=== PATIENT | female | born 1940 | race Two or more races ===

== ENCOUNTER 2025-04-05 11:57 | Inpatient (IN) | payer OTHER, MEDICAID ==
[~2025-04-05] VITALS: Ht 157.5 cm; Wt 63.5 kg
[2025-04-05 07:00] VITALS: BP 135/73
[2025-04-05 12:44] LABS: PLATELET COUNT (AUTO) 253 K/uL (150-450); RED BLOOD CELL COUNT(AUTO) 4.22 MIL/uL (4.0-5.2); RED CELL DISTRIBUTION WIDTH 14.5 % (11.5-15.0); WHITE BLOOD COUNT (AUTO) 8.7 K/uL (4.3-11.0)
[2025-04-05 12:45] LABS: APPEARANCE,URINE TURBID (CLEAR); BLOOD, URINE 1+ Ery/uL (NEGATIVE); LEUKOCYTE ESTERASE ,URINE NEGATIVE (NEGATIVE); NITRITE, URINE NEGATIVE (NEGATIVE); UGLUCOSE NEGATIVE (NEGATIVE)
[2025-04-05 12:53] LABS: AMPHETAMINE, URINE NEGATIVE (NEGATIVE); BENZODIAZEPINE, URINE NEGATIVE (NEGATIVE); COCCAINE, URINE NEGATIVE (NEGATIVE); OPIATE, URINE NEGATIVE (NEGATIVE)
[2025-04-05 13:01] LABS: BARBITURATE, URINE POSITIVE (NEGATIVE); CANNABINOID, URINE POSITIVE (NEGATIVE)
[2025-04-05 13:02] LABS: ADD URINE CULTURE NO; SQUAMOUS EPITHELIAL CELL,UR Moderate /HPF (None Seen)
[2025-04-05 13:14] LABS: ALCOHOL, BLOOD < 3 mg/dL (0-10); ASPARTATE AMINOTRANSFERASE 25 U/L (15-37); CALCIUM, SERUM 10.7 mg/dL (8.5-10.1); CREATININE 1.2 mg/dL (0.6-1.3); SODIUM SERUM 140 mmol/L (136-145); TOTAL PROTEIN, SERUM 7.7 g/dL (6.4-8.2); UREA NITROGEN, BLOOD 23 mg/dL (7-18)
[2025-04-05] MEDS ORDERED: SITA100T PO (15:04)
[2025-04-05] MEDS ORDERED: TEMA15CA PO (15:04)
[2025-04-05] MEDS ORDERED: PRIM50TA27 PO (15:04)
[2025-04-05] MEDS ORDERED: CHOL100043 PO (15:04)
[2025-04-05] MEDS ORDERED: ASPI-1169 PO (15:04)
[2025-04-05] MEDS ORDERED: [UNRECOGNIZED DRUG - OTHER] PO (15:04)
[2025-04-05] MEDS ORDERED: LEVO75TA7 PO (15:04)
[2025-04-05] MEDS ORDERED: POTA-165 PO (15:04)
[2025-04-05] MEDS ORDERED: ESCI20TA PO (15:04)
[2025-04-05] MEDS ORDERED: PROP10TA10 PO (15:04)
[2025-04-05] MEDS ORDERED: BACI1CAP6 PO (15:04)
[2025-04-05] MEDS ORDERED: ATOR10TA PO (15:04)
[2025-04-05] MEDS ORDERED: MAGN250T37 PO (15:04)
[2025-04-05 15:48] VITALS: O2SAT 99
[2025-04-05 16:00] VITALS: BP_SYST 112; BP_SYST 120; BP_DIAS 58; BP_DIAS 75; TEMP 97.5; TEMP 98.1; O2SAT 94; O2SAT 97
[2025-04-05] MEDS ORDERED: MAG HYDROX/AL HYDROX/SIMETH 30 ML UDC PO PRN (17:00)
[2025-04-05] MEDS: PROPRANOLOL HCL 10 MG TABLET PO SCH (17:00)
[2025-04-05] MEDS ORDERED: ACETAMINOPHEN 325 MG TABLET PO PRN (17:00)
[2025-04-05] MEDS ORDERED: DEXTROSE 50%-WATER 50 ML DISP.SYRIN IV PRN (17:00)
[2025-04-05] MEDS ORDERED: MAGNESIUM HYDROXIDE 30 ML UDC PO PRN (17:00)
[2025-04-05] MEDS: BLOOD SUGAR DIAGNOSTIC 1 EACH STRIP IN ONE (17:29)
[2025-04-05] MEDS: BLOOD SUGAR DIAGNOSTIC 1 EACH STRIP IN SCH (17:30)
[2025-04-05] MEDS: LORAZEPAM 0.5 MG TABLET PO STA (17:42)
[2025-04-05 20:00] VITALS: TEMP 97.8; O2SAT 96
[2025-04-05] MEDS: INSULIN REGULAR, HUMAN 100 UNIT/ML 3 ML VIAL SQ PRN (21:11)
[2025-04-06 08:00] VITALS: BP 147/71; TEMP 97.8; O2SAT 92
[2025-04-06] MEDS: LEVOTHYROXINE SODIUM 75 MCG TABLET PO SCH (08:17)
[2025-04-06] MEDS: CHOLECALCIFEROL 1,000 UNIT TABLET (VIT D3) PO SCH (08:17)
[2025-04-06] MEDS: ATORVASTATIN 10 MG TABLET PO SCH (08:17)
[2025-04-06] MEDS: LACTOBACILLUS RHAMNOSUS GG 1 EACH CAP.SPRINK PO SCH (08:17)
[2025-04-06] MEDS: ASPIRIN 81 MG TAB.CHEW PO SCH (08:18)
[2025-04-06] MEDS: LINAGLIPTIN 5 MG TABLET PO SCH (08:18)
[2025-04-06 08:22] LABS: LDL 86 mg/dL (0-99)
[2025-04-06 08:36] LABS: ASPARTATE AMINOTRANSFERASE 24.0 U/L (15-37); CALCIUM, SERUM 9.5 mg/dL (8.5-10.1); CREATININE 1.1 mg/dL (0.6-1.3); SODIUM SERUM 141.0 mmol/L (136-145); TOTAL PROTEIN, SERUM 7.5 g/dL (6.4-8.2); UREA NITROGEN, BLOOD 17.0 mg/dL (7-18)
[2025-04-06] MEDS ORDERED: LEVOTHYROXINE SODIUM 75 MCG TABLET PO SCH (09:00)
[2025-04-06 16:11] VITALS: BP 136/65; TEMP 98; O2SAT 96
[2025-04-06 16:48] LABS: CREATININE 1.0 mg/dL (0.6-1.3)
[2025-04-06] MEDS: LORAZEPAM 1 MG TABLET PO PRN (20:06)
[2025-04-06] MEDS: OLANZAPINE 10 MG VIAL IM STA (20:30)
[2025-04-06 20:55] VITALS: BP 120/64; TEMP 99; O2SAT 96
[2025-04-06] MEDS: QUETIAPINE FUMARATE 25 MG TABLET PO SCH (21:36)
[2025-04-07] MEDS ORDERED: LEVOTHYROXINE SODIUM 75 MCG TABLET PO SCH (06:00)
[2025-04-07] MEDS: LEVOTHYROXINE SODIUM 75 MCG TABLET PO SCH (06:24)
[2025-04-07 08:00] VITALS: BP 149/58; TEMP 98.1; O2SAT 97
[2025-04-07] MEDS: SERTRALINE HCL 25 MG TABLET PO SCH (09:16)
[2025-04-07] MEDS: MAGNESIUM OXIDE 400 MG TABLET PO SCH (09:18)
[2025-04-07 16:00] VITALS: BP 137/64; TEMP 98.6; O2SAT 97
[2025-04-07 20:11] VITALS: BP 105/76; TEMP 97.8; O2SAT 96
[2025-04-08 08:00] VITALS: BP 125/63; TEMP 97.9; O2SAT 98
[2025-04-08] MEDS: METFORMIN 500 MG TABLET PO SCH (08:47)
[2025-04-08 16:00] VITALS: BP 121/57; TEMP 98.1; O2SAT 98
[2025-04-08 19:54] VITALS: BP 141/55; TEMP 97.7; O2SAT 98
[2025-04-08] MEDS: TEMAZEPAM 15 MG CAPSULE PO PRN (22:30)
[2025-04-09 08:00] VITALS: BP 135/57; TEMP 98.6; O2SAT 98
[2025-04-09 16:00] VITALS: BP 113/60; TEMP 98.1; O2SAT 96
[2025-04-09] MEDS: HALOPERIDOL LACTATE INJ 5 MG/ML VIAL IM STA (16:53)
[2025-04-09] MEDS: LORAZEPAM INJ 2 MG/ML VIAL IM STA (16:54)
[2025-04-09] MEDS: QUETIAPINE FUMARATE 25 MG TABLET PO SCH (21:46)
[2025-04-09 21:52] VITALS: BP 126/69; TEMP 98.4; O2SAT 96
[2025-04-10 08:00] VITALS: BP 154/66; TEMP 97.9; O2SAT 96
[2025-04-10 16:00] VITALS: BP 101/52; TEMP 97.9; O2SAT 100
[2025-04-10 20:00] VITALS: BP 129/52; TEMP 98.1; O2SAT 98
[2025-04-10 21:00] VITALS: BP 125/69; TEMP 98; O2SAT 83
[2025-04-11 08:00] VITALS: BP 127/58; TEMP 97.9; O2SAT 94
[2025-04-11] MEDS: SERTRALINE HCL 25 MG TABLET PO SCH (08:32)
[2025-04-11 16:22] VITALS: BP 130/68; TEMP 97.8; O2SAT 97
[2025-04-11 20:00] VITALS: BP 122/56; TEMP 97.9; O2SAT 96
[2025-04-12 08:27] VITALS: BP 130/68; TEMP 97.7; O2SAT 98
== END 2025-04-12 12:50 | DRG 885 ==
LOC: ER 12:06 → GPS 16:43
PROVIDERS: ADMIT Nurse Practitioner Psychiatric/Mental Health; ATTEND Nurse Practitioner Family
DX: F32.3 Major depressive disorder, single episode, severe with psychotic features (principal); F03.93 Unspecified dementia, unspecified severity, with mood disturbance; F03.918 Unspecified dementia, unspecified severity, with other behavioral disturbance; F03.92 Unspecified dementia, unspecified severity, with psychotic disturbance; R45.851 Suicidal ideations; F03.911 Unspecified dementia, unspecified severity, with agitation; F29 Unspecified psychosis not due to a substance or known physiological condition; E78.5 Hyperlipidemia, unspecified; E11.9 Type 2 diabetes mellitus without complications; E03.9 Hypothyroidism, unspecified; I10 Essential (primary) hypertension; Z91.81 History of falling; Z88.2 Allergy status to sulfonamides; F39 Unspecified mood [affective] disorder; R79.89 Other specified abnormal findings of blood chemistry
CPT/HCPCS: 36415; 70450-TC; 73610-TC; 73630-TC; 80048-TC; 80053-TC; 80061-TC; 80076-TC; 81001; 82565-TC; 82962-TC; 84443-TC; 85025-TC; 97116-TC; 97530-TC; G0480; J1200; J1630; J1815; J2060; J3490